=== PATIENT | female | born 1970 | race Caucasian/White ===

== ENCOUNTER 2019-07-31 22:45 | Emergency (ER) | payer SELFPAY ==
[~2019-07-31] VITALS: Ht 157.5 cm; Wt 59.1 kg
[2019-07-31 22:59] VITALS: BP 185/105; Ht 157.5 cm; Wt 59.1 kg
[2019-07-31] MEDS ORDERED: ZPAK PO (23:49)
[2019-07-31] MEDS ORDERED: PREDNISONE20 MG PO (23:49)
[2019-07-31] MEDS ORDERED: TYLENOL W/CODEI1 TAB PO (23:49)
== END 2019-08-01 00:02 | disposition home or self-care (01) ==
LOC: D.ER 22:45
DX: J40 Bronchitis, not specified as acute or chronic (principal); Z72.0 Tobacco use